=== PATIENT | female | born 1970 | race Caucasian/White ===

== ENCOUNTER → 2022-12-21 | Outpatient (CLI) | payer OTHER ==
[~2022-12-21] MED LIST: AUGM875T27 PO; CLIN300C PO; HYDR-3363 OR; IBUP80TA PO; OXYC1TAB23 PO; PRIN10TA PO; ULTR50TA PO; VENTAER INH; VICO7.5T11 PO; WELLTAB4 PO
[2022-12-21 14:15] LABS: BASO % 0.7 % (0.0-1.0); EOS # 0.2 10^3/uL (0.0-0.5); EOS % 3.9 % (0.0-3.0); HEMATOCRIT 43.8 % (36.0-47.0); HEMOGLOBIN 14.4 g/dl (12.0-15.5); LYMPH # 1.5 10^3/uL (1.5-5.0); LYMPH % 26.4 % (24.0-44.0); MEAN CORPUSCULAR HEMOGLOBIN 30.3 pg (27.0-33.0); MEAN CORPUSCULAR HGB CONC 32.9 g/dl (32.0-36.5); MONO # 0.5 10^3/uL (0.0-0.8); NEUTROPHILS # 3.4 10^3/uL (1.5-8.5); NEUTROPHILS % 59.8 % (36.0-66.0); PLATELET COUNT, AUTOMATED 331 10^3/uL (150-450); RED BLOOD COUNT 4.76 10^6/uL (4.00-5.40); WHITE BLOOD COUNT 5.7 10^3/uL (4.0-10.0)
[2022-12-21 14:24] LABS: ALBUMIN 3.7 G/DL (3.2-5.2); ALKALINE PHOSPHATASE 72 U/L (46-116); ALT/SGPT 63 U/L (7.0-40); AST/SGOT 30 U/L (<34); BILIRUBIN,TOTAL 0.2 MG/DL (0.3-1.2); BLOOD UREA NITROGEN 8 MG/DL (9-23); CALCIUM LEVEL 9.4 MG/DL (8.5-10.1); CARBON DIOXIDE LEVEL 33 MMOL/L (20-31); CHLORIDE LEVEL 104 MMOL/L (98-107); CREATININE FOR GFR 0.63 MG/DL (0.55-1.30); GLOMERULAR FILTRATION RATE > 60.0 (>51); GLUCOSE, FASTING 78 MG/DL (60-100); POTASSIUM SERUM 4.3 MMOL/L (3.5-5.1); SODIUM LEVEL 139 MMOL/L (136-145); TOTAL PROTEIN 6.5 G/DL (5.7-8.2)
[2022-12-21 14:27] LABS: C REACTIVE PROTEIN QUANTITATIV < 0.40 MG/DL (<1.0)
[2022-12-21 14:28] LABS: HEPATITIS B SURFACE ANTIBODY NEGATIVE (POSITIVE); IMMUNOGLOBULIN A 166.5 MG/DL (40-350); IMMUNOGLOBULIN G 878 MG/DL (650-1600)
[2022-12-21 14:33] LABS: IMMUNOGLOBULIN M 67.9 MG/DL (50-300)
[2022-12-21 14:42] LABS: HEPATITIS B SURFACE ANTIGEN NEGATIVE (NEGATIVE)
[2022-12-21 14:52] LABS: ERYTHROCYTE SEDIMENTATION RATE 11 mm/hr (0-30)
[2022-12-21 14:54] LABS: HIV 1&2 SCREEN CENTAUR NEGATIVE (NEGATIVE)
[2022-12-21 15:00] LABS: HEPATITIS C VIRUS ABY INDEX < 0.0 INDEX (<0.8)
[2022-12-21 15:24] LABS: IMMUNOGLOBULIN E 10.1 IU/ML (0-378)
== END ==
LOC: M PLALAB 10:25
PROVIDERS: ATTEND Internal Medicine Infectious Disease
DX: A69.20 Lyme disease, unspecified (principal); B60.00 Babesiosis, unspecified; J32.9 Chronic sinusitis, unspecified; L81.8 Other specified disorders of pigmentation

== ENCOUNTER 2024-05-31 14:52 | Inpatient (IN) | payer OTHER ==
[~2024-05-31] VITALS: Ht 152.4 cm; Wt 69.9 kg
[2024-05-31] MEDS: LORazepam 2 MG TAB PO PRN (15:25)
[2024-05-31] MEDS: NICOTINE POLACRILEX 2 MG GUM PO PRN ×2 (15:25→21:07)
[2024-05-31] MEDS ORDERED: ALPR0.25 PO (17:40)
[2024-05-31] MEDS ORDERED: FLUT1BLS5 INH (17:40)
[2024-05-31] MEDS ORDERED: LUMA42CA PO (17:40)
[2024-05-31] MEDS ORDERED: DULO1CAP6 PO (17:40)
[2024-05-31] MEDS ORDERED: CELE0.09 PO (17:40)
[2024-05-31] MEDS ORDERED: AMLO1TAB25 PO (17:40)
[2024-05-31] MEDS ORDERED: ATOR40TA75 PO (17:40)
[2024-05-31] MEDS ORDERED: CLON0.2D6 TOP (17:40)
[2024-05-31] MEDS ORDERED: ALBU8.5H INH (17:40)
[2024-05-31] MEDS ORDERED: CLOP75TA2 PO (17:40)
[2024-05-31] MEDS ORDERED: LEVOTAB10 PO (17:40)
[2024-05-31] MEDS ORDERED: HOME MED LIST COMPLETE! XX SCH (17:40)
[2024-05-31] MEDS ORDERED: IBUPROFEN 400MG TAB PO PRN (18:20)
[2024-05-31] MEDS ORDERED: MOM 30ML SUSPENSION UDC PO PRN (18:20)
[2024-05-31] MEDS ORDERED: MAALOX 30 ML SUSP *UDC PO PRN (18:20)
[2024-05-31] MEDS ORDERED: diphenhydrAMINE 25MG CAP PO PRN (18:20)
[2024-05-31] MEDS: traZODone 50 MG TAB PO PRN (21:07)
[2024-05-31 21:42] VITALS: BP 130/86; TEMP 97.6; O2SAT 97
[2024-06-01 06:18] VITALS: BP 120/80; TEMP 98.2; O2SAT 97
[2024-06-01] MEDS ORDERED: ALBUTEROL 90 MCG/ACT 8GM HFA INHALER INH PRN (07:50)
[2024-06-01 09:01] VITALS: BP 134/72
[2024-06-01] MEDS: ATORVASTATIN 20 MG TAB PO SCH (09:03)
[2024-06-01] MEDS: CLOPIDOGREL 75 MG TAB PO SCH (09:04)
[2024-06-01] MEDS: ALPRAZolam 0.25 MG TAB PO PRN (09:04)
[2024-06-01] MEDS: DULoxetine 30MG CAPSULE (CYMBALTA) PO SCH (09:04)
[2024-06-01] MEDS: busPIRone 5 MG TAB PO SCH (09:51)
[2024-06-01] MEDS: CelecoXIB (CeleBREX) 100 MG CAP PO SCH (11:13)
[2024-06-01] MEDS: NICOTINE 21MG/24HR 1 EA TRANSDERMAL TD SCH (11:13)
[2024-06-01 14:50] VITALS: BP 129/70; TEMP 97.9; O2SAT 95
[2024-06-01] MEDS: traZODone 50 MG TAB PO PRN (20:04)
[2024-06-02] MEDS: ACETAMINOPHEN TAB 650MG DOSE (2X325MG) PO PRN (05:29)
[2024-06-02 07:06] VITALS: BP 146/92; TEMP 97.5; O2SAT 96
[2024-06-02 15:05] VITALS: BP 125/58; TEMP 98.8; O2SAT 96
[2024-06-02] MEDS: LORazepam 0.5 MG TAB PO PRN (20:29)
[2024-06-02] MEDS: MIRTAZAPINE 7.5MG PER 1/2 TABLET PO SCH (20:29)
[2024-06-03 06:47] VITALS: BP 136/81; TEMP 97.6; O2SAT 97
[2024-06-03 08:34] VITALS: BP 127/80
[2024-06-03 15:31] VITALS: BP 139/67; TEMP 97.8; O2SAT 98
[2024-06-04 06:04] VITALS: BP 125/65; TEMP 97; O2SAT 96
[2024-06-04 08:45] VITALS: BP 126/85
[2024-06-04] MEDS ORDERED: TRAZ-252 PO (12:14)
[2024-06-04] MEDS ORDERED: BUSP5TA PO (12:14)
[2024-06-04] MEDS ORDERED: MIRT-10 PO (12:14)
[2024-06-04] MEDS ORDERED: ATIV1TAB10 PO (12:14)
[2024-06-06] MEDS ORDERED: cloNIDine HCL 0.2 MG/24 HR PATCH TOP SCH (09:00)
== END 2024-06-04 13:31 | disposition home or self-care (01) | DRG 754 ==
LOC: M ED 14:52 → EDBD 14:52 → M ED INP 18:16 → M PSY 20:20
PROVIDERS: ADMIT Psychiatry & Neurology Psychiatry; ATTEND Psychiatry & Neurology Psychiatry
DX: F32.A Depression, unspecified (principal); F41.9 Anxiety disorder, unspecified; F43.10 Post-traumatic stress disorder, unspecified; R45.851 Suicidal ideations; J44.9 Chronic obstructive pulmonary disease, unspecified; I10 Essential (primary) hypertension; M79.7 Fibromyalgia; I25.10 Atherosclerotic heart disease of native coronary artery without angina pectoris; Z86.19 Personal history of other infectious and parasitic diseases; I25.2 Old myocardial infarction; M25.50 Pain in unspecified joint; G89.29 Other chronic pain; Z90.49 Acquired absence of other specified parts of digestive tract; Z90.79 Acquired absence of other genital organ(s); Z83.3 Family history of diabetes mellitus; Z79.899 Other long term (current) drug therapy; Z88.8 Allergy status to other drugs, medicaments and biological substances; Z91.51 Personal history of suicidal behavior; Z62.810 Personal history of physical and sexual abuse in childhood; F17.290 Nicotine dependence, other tobacco product, uncomplicated